=== PATIENT | female | born 1985 | race Caucasian/White ===

== ENCOUNTER 2023-03-21 20:54 | Emergency (ER) | payer OTHER, SELFPAY ==
[2023-03-21 21:15] VITALS: BP 144/90; PULSE 111; RESP 14; TEMP 36.7; O2SAT 97; BMI 45.7
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
[2023-03-21] MEDS: iohexol 350 mg/mL 500 mL Btl (per mL) IV (22:31)
[2023-03-21 23:23] VITALS: BP 143/90; PULSE 100; RESP 18; O2SAT 98
== END 2023-03-21 23:23 | disposition home or self-care (01) ==
PROVIDERS: Emergency Provider Emergency Medicine; PCP Nurse Practitioner Family
DX: S30.1XXA Contusion of abdominal wall, initial encounter (principal); V89.2XXA Person injured in unspecified motor-vehicle accident, traffic, initial encounter; Y92.410 Unspecified street and highway as the place of occurrence of the external cause; M54.2 Cervicalgia
CPT/HCPCS: 71045; 72125; 74177; 99285; Q9967